=== PATIENT | male | born 1995 | race Caucasian/White ===

== ENCOUNTER 2016-11-23 22:07 | Emergency (ER) | payer BC ==
--- NOTE | 2016-11-24 06:25 | ER ---
ADMIT: 11/23/2016 RM/LOC: ER [facility] MR#: [id number] [address] [address] [address] [place] [address] Emergency Room Report SEX: M AGE: 20 : 1995 DATE: 11/23/2016 The patient is a 20-year-old male with seasonal allergic rhinitis, just received his yearly Depo-Medrol shot. He was drinking a jeancarlos banana smoothie, developed diffuse urticaria, lip swelling, no respiratory distress. Exam remarkable for nontoxic, afebrile, diffusely flushed male with no wheeze or significant angioedema. Received epinephrine, Benadryl, and Depo-Medrol with marked improvement. Home with Benadryl 60 mg taper over 14 days. Gerson Ledbetter MD/ ailyn JOB #: [id number] CC: Gerson Ledbetter MD, Attending Physician Cesar Kwan MD, Family Physician Cesar Kwan MD
== END 2016-11-23 23:00 | disposition home or self-care (01) ==
LOC: ER 22:07
DX: L50.0 Allergic urticaria (principal); Z79.899 Other long term (current) drug therapy